=== PATIENT | male | born 1975 | race Caucasian/White ===

== ENCOUNTER 2016-07-11 11:54 | Emergency (ER) | payer OTHER | END 2016-07-11 13:45 | disposition home or self-care (01) | LOC: ER1 11:54 | DX: S82.302A Unspecified fracture of lower end of left tibia, initial encounter for closed fracture (principal); F17.210 Nicotine dependence, cigarettes, uncomplicated; W17.89XA Other fall from one level to another, initial encounter | CPT/HCPCS: 29515; 73590; 73610; 73630; 96372; 99283; J1885 ==

== ENCOUNTER 2020-07-11 17:37 | Emergency (ER) | payer OTHER ==
[~2020-07-11 17:37] MED LIST: IBUPROFEN800 MG PO
[2020-07-11] MEDS ORDERED: DOXYCYCLINE HY100 MG PO (18:50)
[2020-07-13 09:12] LABS: HIV SCREEN 4TH GENERATION WRFX Non Reactive (Non Reactive)
[2020-07-13 10:12] LABS: RPR Non Reactive (Non Reactive)
[2020-07-14 18:12] LABS: CHLAMYDIA TRACHOMATIS, NAA Negative (Negative); NEISSERIA GONORRHOEAE, NAA Positive (Negative)
== END 2020-07-11 19:18 | disposition home or self-care (01) ==
LOC: ER1 17:37
PROVIDERS: Emergency Medicine
DX: N34.2 Other urethritis (principal); F17.200 Nicotine dependence, unspecified, uncomplicated; Z86.19 Personal history of other infectious and parasitic diseases
CPT/HCPCS: 81001; 86592; 86695; 86696; 87389; 96372; 99284; J0696